=== PATIENT | female | born 1980 | race African-American/Black ===

== ENCOUNTER 2019-05-14 20:06 | Emergency (ER) | payer OTHER ==
[~2019-05-14] VITALS: Ht 152.4 cm; Wt 90.7 kg
[2019-05-14 20:22] VITALS: BP 133/91
[2019-05-14] MEDS ORDERED: NACL 0.9% 1,000 ML IV SCH (20:37)
[2019-05-14] MEDS ORDERED: ONDANSETRON 4 MG/2 ML VIAL IVP ONE ×2 (20:40→22:00)
[2019-05-14] MEDS ORDERED: MORPHINE SULFATE 4 MG/ML SYR IVP ONE ×2 (20:40→22:00)
--- NOTE | 2019-05-14 20:56 | NUR ---
PT PRESENTS TO ED WITH C/O OF ABD PAIN FOR APPROX 2-3 HRS. +NAUSEA, +VOMITING. DENIES ANY PREVIOUS MEDICAL HX.
[2019-05-14 21:03] LABS: BASOPHILS % (AUTO) 0.2 % (0.0-2.0); HEMATOCRIT 29.8 % (36-48); HEMOGLOBIN 9.4 g/dL (12.0-16.0); LYMPHOCYTES # (AUTO) 0.8 K/uL (2.5-16.5); LYMPHOCYTES % (AUTO) 5.6 % (20.5-51.1); MEAN CORPUSCULAR HEMOGLOBIN 24 pg (27-31); MEAN CORPUSCULAR HGB CONC 32 g/dL (33-37); MEAN CORPUSCULAR VOLUME 75.2 fL (80-94); MONOCYTES # (AUTO) 0.4 K/uL (0.8-1.0); MONOCYTES % (AUTO) 2.8 % (1.7-9.3); NEUTROPHILS # (AUTO) 12.5 K/uL (1.8-7.7); NEUTROPHILS % (AUTO) 91.4 % (42.2-75.2); PLATELET COUNT (AUTO) 420 K/uL (140-450); RED BLOOD CELL COUNT(AUTO) 3.96 MIL/uL (4.20-5.40); RED CELL DISTRIBUTION WIDTH 15.9 % (11.6-13.7); WHITE BLOOD COUNT (AUTO) 13.7 K/uL (4.8-10.8)
[2019-05-14 21:15] LABS: ANION GAP 15.7 (8-16); CARBON DIOXIDE 23.2 mmol/L (21-32); CREATININE 1.2 mg/dL (0.6-1.3); POTASSIUM 3.9 mmol/L (3.5-5.1)
[2019-05-14 21:19] LABS: ALBUMIN 3.5 g/dL (3.4-5.0); TOTAL BILIRUBIN 0.3 mg/dL (0.0-1.0)
--- NOTE | 2019-05-14 22:18 | NUR ---
PT LAYING IN BED, RR EVEN AND UNLABORED. REPORTED INCREASING AND NAUSEA, ADMINSTERED MORPHINE IVP AND ZOFRAN IVP. PT REPORTS IMPROVEMENT SHORTLY AFTER ADMINISTRATION. ALL NEEDS MET.
[2019-05-14 22:36] VITALS: BP 139/84
--- NOTE | 2019-05-14 22:36 | NUR ---
Patient discharged with v/s stable. Written and verbal after care instructions given and explained. Patient alert, oriented and verbalized understanding of instructions. Ambulatory with steady gait. All questions addressed prior to discharge. ID band removed. Patient advised to follow up with PMD. Rx of MOTRIN, NORCO, FLOMAX, ZOFRAN given. Patient educated on indication of medication including possible reaction and side effects. Opportunity to ask questions provided and answered.
== END 2019-05-14 22:36 | disposition home or self-care (01) ==
LOC: MED 20:06
DX: N20.0 Calculus of kidney (principal); Z98.890 Other specified postprocedural states
CPT/HCPCS: 36415; 74176; 80053; 81002; 81025; 83690; 84703; 85025; 96361; 96374; 96375; 96376; 99284; J2270; J2405; J7030